=== PATIENT | male | born 1940 | race Caucasian/White ===

== ENCOUNTER 2018-05-06 14:26 | Inpatient (IN) | payer MEDICARE ==
[~2018-05-06] VITALS: Ht 175.3 cm; Wt 87.5 kg
--- NOTE | ~2018-05-06 | PROC ---
[address] [address] PROCEDURE REPORT Name: PAMELA DOUGLAS Room: [address] IN M.R.#: [id number] Admission: 05/06/18 Attend Phys: Maxim Pelletier MD Discharge: 05/11/18 Date of : 36 Report #: [id number] THIS REPORT FOR: //name// For GI report, please see Provation report in Perceptive 7 content. By: [id number] Records Staff MARYLOU /RICKI
[2018-05-06 16:02] LABS: ABSOLUTE BASOPHILS 0.1 thou/uL (0.0-0.2); ABSOLUTE EOSINOPHILS 0.2 thou/uL (0.0-0.7); ABSOLUTE LYMPHOCYTES 1.3 thou/uL (0.8-5.3); ABSOLUTE MONOCYTES 0.8 thou/uL (0.0-1.2); ABSOLUTE NEUTROPHILS 4.9 thou/uL (1.6-8.1); BASOPHILS 1.3 %; EOSINOPHILS 2.4 %; HEMOGLOBIN 15.1 gm/dL (14.0-18.0); LYMPHOCYTES 18.2 %; MCH 28.5 pg (26.0-34.0); MCHC 33.6 g/dL (28.0-37.0); MCV 84.8 fL (80.0-100.0); MONOCYTES 11.5 %; MPV 7.6 fl. (7.2-11.1); NUCLEATED RBCS 0 /100WBC; PLATELET COUNT* 261 thou/uL (150-400); POLYS 66.6 %; RDW-CV 13.8 % (10.5-14.5); WBC 7.3 thou/uL (4.0-11.0)
[2018-05-06 16:24] LABS: ALBUMIN 3.3 g/dL (3.4-5.0); CALCIUM 8.6 mg/dL (8.5-10.1); CREATININE 1.3 mg/dL (0.6-1.3); POTASSIUM 3.7 mmol/L (3.5-5.1); TOTAL BILIRUBIN 0.6 mg/dL (<0.1-1.0); TOTAL PROTEIN 7.6 g/dL (6.4-8.2)
[2018-05-06 17:00] VITALS: BP 125/79
[2018-05-06 18:01] LABS: URINE BILIRUBIN NEGATIVE (Negative); URINE BLOOD NEGATIVE (Negative); URINE CLARITY CLEAR; URINE COLOR YELLOW; URINE GLUCOSE-RANDOM NEGATIVE (Negative); URINE KETONES NEGATIVE (Negative); URINE LEUKOCYTES-REFLEX NEGATIVE (Negative); URINE NITRITE-REFLEX NEGATIVE (Negative); URINE PROTEIN NEGATIVE (Negative); URINE SPECIFIC GRAVITY <= 1.005 (1.005-1.030); URINE UROBILINOGEN 0.2 E.U./dl (0.2-1.0)
[2018-05-07] VITALS (8 sets, daily range): BP systolic 105–142; BP diastolic 67–81
[2018-05-07 04:18] LABS: ABSOLUTE BASOPHILS 0.1 thou/uL (0.0-0.2); ABSOLUTE EOSINOPHILS 0.2 thou/uL (0.0-0.7); ABSOLUTE LYMPHOCYTES 1.6 thou/uL (0.8-5.3); ABSOLUTE MONOCYTES 0.7 thou/uL (0.0-1.2); ABSOLUTE NEUTROPHILS 3.7 thou/uL (1.6-8.1); BASOPHILS 1.1 %; HEMATOCRIT 39.3 % (42.0-52.0); HEMOGLOBIN 13.3 gm/dL (14.0-18.0); LYMPHOCYTES 24.9 %; MCH 28.9 pg (26.0-34.0); MCHC 33.9 g/dL (28.0-37.0); MCV 85.2 fL (80.0-100.0); MONOCYTES 11.9 %; MPV 7.8 fl. (7.2-11.1); NUCLEATED RBCS 0 /100WBC; PLATELET COUNT* 236 thou/uL (150-400); POLYS 59.1 %; RBC 4.61 mil/uL (4.50-6.00); RDW-CV 13.5 % (10.5-14.5); WBC 6.3 thou/uL (4.0-11.0)
[2018-05-07 04:33] LABS: CALCIUM 8.1 mg/dL (8.5-10.1); CREATININE 1.2 mg/dL (0.6-1.3); POTASSIUM 3.9 mmol/L (3.5-5.1)
--- NOTE | 2018-05-07 11:42 | EKG ---
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 05/07/18 1141 0850 0850 Robert Garcia MD, [facility] /EPI
[2018-05-07 15:14] LABS: INSULIN 17.4 uIU/mL (2.6-24.9)
[2018-05-07 16:07] LABS: GLYCOHEMOGLOBIN (HGB A1C) 5.2 % (4.8-5.6)
[2018-05-07 23:56] LABS: CALCIUM 8.4 mg/dL (8.5-10.1); CREATININE 1.2 mg/dL (0.6-1.3); POTASSIUM 3.5 mmol/L (3.5-5.1)
[2018-05-08] VITALS (7 sets, daily range): BP systolic 11–136; BP diastolic 52–88
[2018-05-08 00:07] LABS: MAGNESIUM 2.2 mg/dL (1.8-2.4)
--- NOTE | 2018-05-08 11:10 | EKG ---
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1940 Requested By: Maxim Pelletier Order Number: [id number] Reading MD: Robert Garcia Measurements Intervals [place] Rate: 159 P: [place]: QRS: 24 QRSD: 86 T: 20 QT: 310 QTc: 505 Interpretive Statements Atrial fibrillation with rapid V-rate Abnormal R-wave progression, early transition Repolarization abnormality, prob rate related Compared to ECG 05/07/2018 08:50:09 Sinus rhythm no longer present Electronically Signed On 05-08-2018 11:10:09 CDT by Robert Garcia [email or web address] <ELECTRONICALLY SIGNED> By: Robert Garcia MD, [facility] 05/08/18 1110 2323 [id number] Robert Garcia MD, [facility] /EPI
[2018-05-09] VITALS: BP 104/60
[2018-05-09 04:00] VITALS: BP 113/64; BP 128/84
[2018-05-09 04:55] LABS: HEMATOCRIT 35.6 % (42.0-52.0); MCH 28.8 pg (26.0-34.0); MCHC 33.6 g/dL (28.0-37.0); MCV 85.8 fL (80.0-100.0); MPV 8.4 fl. (7.2-11.1); RBC 4.15 mil/uL (4.50-6.00); RDW-CV 13.6 % (10.5-14.5); WBC 7.6 thou/uL (4.0-11.0)
[2018-05-09 06:04] LABS: CALCIUM 7.7 mg/dL (8.5-10.1); CREATININE 1.2 mg/dL (0.6-1.3); MAGNESIUM 1.9 mg/dL (1.8-2.4); POTASSIUM 3.7 mmol/L (3.5-5.1)
[2018-05-09 07:54] VITALS: BP 112/65
[2018-05-09 12:10] LABS: ALBUMIN 2.9 g/dL (3.4-5.0); CALCIUM 8.1 mg/dL (8.5-10.1); CREATININE 1.2 mg/dL (0.6-1.3); POTASSIUM 3.7 mmol/L (3.5-5.1); TOTAL BILIRUBIN 0.8 mg/dL (<0.1-1.0); TOTAL PROTEIN 6.6 g/dL (6.4-8.2)
[2018-05-09 12:15] VITALS: BP 130/83
[2018-05-09 16:03] VITALS: BP 113/51
[2018-05-09 20:00] VITALS: BP 121/62
[2018-05-10] VITALS: BP 122/71
[2018-05-10 04:00] VITALS: BP 130/72
[2018-05-10 04:55] LABS: ABSOLUTE BASOPHILS 0.1 thou/uL (0.0-0.2); ABSOLUTE EOSINOPHILS 0.3 thou/uL (0.0-0.7); ABSOLUTE LYMPHOCYTES 1.5 thou/uL (0.8-5.3); ABSOLUTE MONOCYTES 0.7 thou/uL (0.0-1.2); ABSOLUTE NEUTROPHILS 4.9 thou/uL (1.6-8.1); BASOPHILS 0.7 %; EOSINOPHILS 4.4 %; HEMATOCRIT 38.1 % (42.0-52.0); HEMOGLOBIN 12.8 gm/dL (14.0-18.0); LYMPHOCYTES 19.9 %; MCH 28.7 pg (26.0-34.0); MCHC 33.6 g/dL (28.0-37.0); MCV 85.3 fL (80.0-100.0); MPV 8.3 fl. (7.2-11.1); NUCLEATED RBCS 0 /100WBC; PLATELET COUNT* 206 thou/uL (150-400); RBC 4.47 mil/uL (4.50-6.00); RDW-CV 13.3 % (10.5-14.5); WBC 7.5 thou/uL (4.0-11.0)
[2018-05-10 05:08] LABS: INR 1.2; PROTIME 11.4 Seconds (9.20-11.50)
[2018-05-10 05:25] LABS: ALBUMIN 2.6 g/dL (3.4-5.0); CALCIUM 7.8 mg/dL (8.5-10.1); CREATININE 1.1 mg/dL (0.6-1.3); POTASSIUM 3.1 mmol/L (3.5-5.1); TOTAL BILIRUBIN 0.7 mg/dL (<0.1-1.0)
[2018-05-10 08:00] VITALS: BP 118/70
[2018-05-10 12:00] VITALS: BP 118/49
[2018-05-10 12:24] LABS: CALCIUM 8.1 mg/dL (8.5-10.1); CREATININE 1.1 mg/dL (0.6-1.3); MAGNESIUM 2.1 mg/dL (1.8-2.4); POTASSIUM 3.4 mmol/L (3.5-5.1)
[2018-05-10 16:01] VITALS: BP 134/79
[2018-05-10 19:30] VITALS: BP 124/75
[2018-05-11] VITALS: BP 136/79
[2018-05-11 04:00] VITALS: BP 131/70
[2018-05-11 08:00] VITALS: BP 143/95
[2018-05-11 11:36] VITALS: BP 158/85
[2018-05-11] MEDS ORDERED: PROTONIX40 M2 PO (11:44)
[2018-05-11] MEDS ORDERED: DILTIAZEM 24HR180 M1 PO (11:44)
--- NOTE | 2018-05-11 15:07 | PATH ---
[address] [address] PATHOLOGY RPT PROCEDURE Name: HERIBERTO DOUGLAS Room: [address] IN M.R.#: [id number] Admission: 05/06/18 Date of : 36 Discharge: 05/11/18 Report #: [id number] Path Case #: [id number] [facility] Accession Number: [id number] . 01 Material submitted: . RECTAL BIOPSY . 01 Clinical history: . None provided . 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 SEE COMMENT. (BRET:brenda; 05/08/2018) QMS/05/08/2018 . 02 Comment: Reviewed with Dr. Chloé Palmer who agrees with the diagnosis. Dr. Santoyo notified at approximately 1540 on 05/08/2018. . 02 Electronically signed: . Brad Graves MD, Pathologist NPI- [id number] . 01 Gross description: . Received in formalin labeled "Carlos Alberto, Heriberto, rectal BX," are multiple segments of lake soft tissue measuring 0.9 x 0.6 x 0.2 cm in aggregate dimensions. The specimen is filtered and submitted entirely in cassette A1. (TSD; 05/07/2018) TOB/TOB . 02 Pathologist provided ICD-10: C20, D12.8, K62.6 . 02 CPT . 107238 Performed at: [address], [place], [place] [id number] MD Fady Gonzalez MD Phone: [phone] Performed at: 02 [facility] [address], [place], [place] [id number] MD Brad Graves MD Phone: [phone]
--- NOTE | 2018-05-13 12:54 | CON ---
[address] [address] CONSULTATION Name: MISAELPAMELA PAYNE Room: [address] IN M.R.#: [id number] Admission: 05/06/18 Attend Phys: Maxim Pelletier MD Discharge: 05/11/18 Date of : 36 Report #: [id number] THIS REPORT FOR: //name// CC: Maxim Pelletier JACOB HAMMONDS Real Chuda DATE OF SERVICE: 05/09/2018 INPATIENT CONSULTATION REQUESTING PHYSICIAN: Maxim Pelletier MD CHIEF COMPLAINT: Weakness, palpitations. HISTORY OF PRESENT ILLNESS: The patient is a 77-year-old male recently diagnosed with metastatic colon cancer, had been going in and out of atrial fibrillation. On IV Cardizem, he converted to sinus rhythm with heart rates in the 60s-70s. Historically, the patient had been feeling poorly for the last 4-6 weeks and had apparently a workup at a [facility]. He recently had a colonoscopy demonstrating a ring-like lesion in his colon with metastatic disease apparently to his liver. From a cardiovascular standpoint, he had been having palpitations off and on for the last 6 months or so. They have been intermittent, lasting 30 minutes to an hour or long. He felt that actually got better with eating sugary foods. He has no neuro symptoms of slurred speech, numbness, visual changes or weakness. He has no documented history of stroke, TIA, hypertension, congestive heart failure or coronary artery disease. Until recently, he had really been free of any significant medical problems. PAST MEDICAL HISTORY: The aforementioned metastatic colon cancer. This has already been biopsied and he does have a liver lesion. General Surgery consult is pending. He has hypoglycemia and the aforementioned atrial fibrillation. SOCIAL HISTORY: He is a nonsmoker. He has no documented history of cardiovascular or vascular disease. REVIEW OF SYSTEMS: CENTRAL NERVOUS SYSTEM: No seizure or paralysis. GENERAL: Positive weight loss. No fevers or chills. RESPIRATORY: No cough, sputum production, wheezing, [place] [address] CONSULTATION Name: PAMELA DOUGLAS Room: [address]#: [id number] Admission: 05/06/18 Attend Phys: Maxim Pelletier MD Discharge: 05/11/18 Date of : 36 Report #: [id number] CARDIOVASCULAR: No chest pain, no shortness of breath. Positive palpitations. He has remote history of near syncope. ENDOCRINE: Diabetes is negative. No history of thyroid disease. GASTROINTESTINAL: As above. Denies hematemesis or melena, but did have a single episode of nausea and vomiting, which prompted his hospitalization in [place] apparently. GENITOURINARY: No dysuria or hematuria. HEMATOLOGIC: No anemia or bleeding disorders. ALLERGIES: No aspirin or contrast allergies. PSYCHIATRIC: No depression or anxiety. MUSCULOSKELETAL: No arthritis or connective tissue disease. SKIN: No rashes. EYES: He denies any visual changes. EARS, NOSE, THROAT AND MOUTH: Positive hearing loss, hard of hearing. PHYSICAL EXAMINATION: VITAL SIGNS: Blood pressure is normal at 112/65, pulse is sinus rhythm at 75. GENERAL: This is a pleasant elderly male. He is hard of hearing, but pleasant, in no apparent distress. HEENT: Eyes: EOMs intact. No facial asymmetry. NECK: Supple. No jugular venous distention. CARDIOVASCULAR: Regular. I cannot hear a murmur. LUNGS: Clear to auscultation bilaterally. ABDOMEN: Mildly distended, nontender. EXTREMITIES: There is no peripheral edema. SKIN: Warm and dry. Electrocardiogram shows a sinus rhythm, PACs. When he was in atrial fibrillation, his heart rate was [address] there were nonspecific [address] segment abnormalities. QRS complexes are narrow. IMAGING: Chest x-ray on 05/07/2018 showed mild elevation of left hemidiaphragm without pneumonia, pneumothorax or effusion. Abdominal x-ray showed distal colonic stent, mild gaseous distention, status post cholecystectomy. IMPRESSION: 1. Paroxysmal atrial fibrillation. He had been having symptoms off and on for the past 6 months. He is presently in a sinus rhythm, on IV Cardizem. We can wean him from this and place him on oral Cardizem. I will check an echocardiogram to assess left ventricular function. Currently, his CHADS-VASc score is 1, but I am not sure of the status of other vascular risk factors, and I would lean towards anticoagulating him with an oral agent postoperatively. 2. Metastatic colon cancer as noted above. Surgical evaluation is pending. 3. Preoperative cardiovascular examination. He reports no angina and presents with no congestive heart failure. If his left ventricular function is [facility] [address] [place] [address] CONSULTATION Name: PAMELA DOUGLAS Room: [address] IN M.R.#: [id number] Admission: 05/06/18 Attend Phys: Maxim Pelletier MD Discharge: 05/11/18 Date of : 36 Report #: [id number] reasonable, I think he can proceed without any contraindication to surgery from a cardiovascular standpoint. <ELECTRONICALLY SIGNED> By: Jose Carlos Peñaloza MD, FACC 05/13/18 1254 1126 [id number] Carlos Peñaloza MD, FACC /nt
== END 2018-05-11 12:32 | disposition home or self-care (01) | DRG 375 ==
LOC: M.3W 14:26 → M.2W 15:14
PROVIDERS: Family Medicine; Internal Medicine; Internal Medicine Gastroenterology; ADMIT Internal Medicine
PROC: 0DBP8ZX Excision of Rectum, Via Natural or Artificial Opening Endoscopic, Diagnostic (ICD-10-PCS; principal; 2018-05-07)
PROC: 0D7N8DZ Dilation of Sigmoid Colon with Intraluminal Device, Via Natural or Artificial Opening Endoscopic (ICD-10-PCS; 2018-05-08)
DX: C19 Malignant neoplasm of rectosigmoid junction (principal); E44.1 Mild protein-calorie malnutrition; T73.0XXA Starvation, initial encounter; E16.2 Hypoglycemia, unspecified; I48.0 Paroxysmal atrial fibrillation; K57.30 Diverticulosis of large intestine without perforation or abscess without bleeding; K64.8 Other hemorrhoids; K64.4 Residual hemorrhoidal skin tags; E83.51 Hypocalcemia; E87.6 Hypokalemia; X58.XXXA Exposure to other specified factors, initial encounter; Z68.28 Body mass index [BMI] 28.0-28.9, adult; Z90.49 Acquired absence of other specified parts of digestive tract; Z80.1 Family history of malignant neoplasm of trachea, bronchus and lung